=== PATIENT | male | born 1975 | race African-American/Black ===

== ENCOUNTER 2016-07-16 14:10 | Emergency (ER) | payer BC ==
[~2016-07-16 14:10] MED LIST: C5 PO; DENIES HOME MEDS; LOVENOX1C SC; T PO
== END 2016-07-16 14:15 | disposition home or self-care (01) ==
LOC: ER 14:10
DX: S51.801A Unspecified open wound of right forearm, initial encounter (principal); L08.9 Local infection of the skin and subcutaneous tissue, unspecified; Z79.899 Other long term (current) drug therapy; Z79.01 Long term (current) use of anticoagulants; X58.XXXA Exposure to other specified factors, initial encounter
CPT/HCPCS: 87070; 87205; 99284